=== PATIENT | female | born 1980 ===

== ENCOUNTER 2018-05-25 18:11 | Observation (INO) ==
[2018-05-25] MEDS ORDERED: ACETAMINOPHEN 650 MG/65 ML BOTTLE IV ONE (18:26)
[2018-05-25] MEDS ORDERED: HYDROmorphone 2 MG/ML VIAL IV PRN ×2 (18:26→22:31)
[2018-05-25] MEDS ORDERED: ONDANSETRON 4 MG/2 ML VIAL IV ONE (18:26)
[2018-05-25] MEDS ORDERED: 0.9 % SODIUM CHLORIDE 1,000 ML IV ONE (18:37)
[2018-05-25] MEDS ORDERED: ACETAMINOPHEN 1,000 MG/100 ML BOTTLE IV ONE (18:37)
[2018-05-25 19:00] LABS: Mean Cell Volume 85.5 fL (80.0-100.0); Mean Corpuscular HGB Conc 31.7 g/dL (31.0-36.0); Platelet Count 269 K/mcL (140-440); RBC 4.49 M/mcL (4.00-5.20)
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
[2018-05-25 19:22] LABS: ALT/SGPT 23 U/l (0-40); Albumin 4.3 gm/dL (3.2-5.2); Albumin/Globulin Ratio 1.3 (1.0-2.3); Alkaline Phosphatase 88 U/L (39-117); Blood Urea Nitrogen 10 mg/dl (6-20)
[2018-05-25 19:33] LABS: Anisocytosis 1+ (NONE SEEN); Basophils % (Manual) 1 % (0-2); Lymphocytes % 13 % (15-49); Monocytes % (Manual) 6 % (1-12); Platelet Estimate NORMAL (NORMAL); RBC Morphology ABNORMAL (NORMAL); Segmented Neutrophils % 80 % (38-78)
[2018-05-25] MEDS ORDERED: LEVOFLOXACIN 750 MG/150 ML BAG IV ONE (20:10)
[2018-05-25] MEDS ORDERED: cefTRIAXone 1 GM VIAL IV ONE (20:10)
[2018-05-25] MEDS ORDERED: ONDANSETRON 4 MG/2 ML VIAL IV PRN (20:32)
[2018-05-25 20:40] LABS: Appearance,Urine CLOUDY; Bacteria,Urine 0 /hpf (0); Bilirubin,Urine NEG (NEG); Color,Urine YELLOW; Glucose,Urine (UA) NEGATIVE (NEG); Leukocyte Esterase,Urine NEG /uL (NEG); Mucus,Urine FEW /hpf (0); Protein,Urine 100 mg/dL (NEG); Specific Gravity,Urine 1.018 (1.000-1.035); Urine Amorphous Crystals FEW /hpf (0); Urine Blood NEG mg/dL (<0.03); Urine RBC 10 /hpf (0-1); Urine Squamous Epithelial Cell 14 /hpf (0-4); Urine WBC 18 /hpf (0-4)
[2018-05-25] MEDS ORDERED: NICOTINE 14 MG PATCH TOPICAL ONE (20:58)
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
[2018-05-25] MEDS ORDERED: LORazepam 2 MG/ML VIAL IV PRN (22:31)
[2018-05-25] MEDS ORDERED: ACETAMINOPHEN 1,000 MG/100 ML BOTTLE IV PRN (22:31)
[2018-05-25] MEDS: 0.9 % SODIUM CHLORIDE 1,000 ML IV SCH (22:46)
[2018-05-25] MEDS ORDERED: diphenhydrAMINE 50 MG/ML VIAL ONE (22:54)
[2018-05-25] MEDS: diphenhydrAMINE 50 MG/ML VIAL IV SCH ×2 (23:25)
[2018-05-26] MEDS ORDERED: HYDROmorphone 2 MG/ML VIAL ONE (03:25)
[2018-05-26] MEDS: 0.9 % SODIUM CHLORIDE 1,000 ML IV SCH ×2 (03:29→11:41)
[2018-05-26 06:32] LABS: Basophils # (Auto) 0 K/mcL (0.0-0.3); Basophils % (Auto) 0.4 % (0.0-2.0); Eosinophils # (Auto) 0.1 K/mcL (0.0-0.7); Eosinophils % (Auto) 1.2 % (0.0-7.0); Lymphocytes # (Auto) 1.7 K/mcL (1.5-4.8); Lymphocytes % (Auto) 16.4 % (15.5-49.0); Mean Cell Volume 86.3 fL (80.0-100.0); Mean Corpuscular HGB Conc 32.5 g/dL (31.0-36.0); Monocytes # (Auto) 1.2 K/mcL (0.1-0.9); Platelet Count 223 K/mcL (140-440); RBC 3.77 M/mcL (4.00-5.20); Red Cell Distribution Width 16.1 % (11.5-14.5)
[2018-05-26 07:10] LABS: ALT/SGPT 16 U/l (0-40); Albumin 3.2 gm/dL (3.2-5.2); Albumin/Globulin Ratio 1.2 (1.0-2.3); Alkaline Phosphatase 111 U/L (39-117); Bilirubin,Direct < 0.2 mg/dL (0.0-0.3); Blood Urea Nitrogen 8 mg/dl (6-20); Gamma Glutamyl Transpeptidase 17 U/L (5-36); Uric Acid 3.1 mg/dL (2.5-8.0)
[2018-05-26] MEDS ORDERED: PANTOPRAZOLE 40 MG VIAL IV SCH (07:30)
--- NOTE | 2018-05-26 07:38 | Emergency Department Note ---
ED Note Addendum Note Addendum: I discussed this case with the mid-level provider and agree with the assessment and plan.
--- NOTE | 2018-05-26 07:49 | Cat Scan Report ---
CLINICAL INFORMATION: Right flank and right lower abdomen pain COMPARISON: 05/01/10 TECHNIQUE: The abdomen was imaged without oral or IV contrast, scanning from the diaphragm to the symphysis pubis. Sagittal and coronal reformats were created. The radiation exposure was limited using dose reduction technology. FINDINGS: 63 minor dependent atelectasis is present posteriorly in both lung bases. The lung bases are otherwise clear and there is no pleural effusion. No hiatus hernia is present. Evaluation the abdominal organs without contrast is somewhat limited. The liver is normal in size and homogeneous. The gallbladder is normal with no stones or thickening of the wall. The bile ducts are nondilated. The spleen is normal in size and homogeneous. No abnormality is seen in the pancreas. Patient is very thin and there is virtually no intra-abdominal fat. This limits the contrast resolution in the abdomen and pelvis. Both kidneys are relatively large and have increased in size approximately 1 cm since 05/01/10. The parenchyma is much lower than that of the adjacent liver and spleen and there are faint areas of increased attenuation in many of the papilla bilaterally. No hydronephrosis is present and there is no stranding of the perirenal fat. No discrete mass or cyst are seen in either kidney. The ureters are decompressed. The kidneys appeared normal on the prior CT done in 2010. There is a large amount stool throughout the colon. There is fluid in nondilated small intestine. The appendix is not clearly identified but there is no evidence of appendicitis or inflammatory bowel disease. No diverticula are seen. There is no evidence of a mass, abscess or ascites within the abdomen or pelvis. Urinary bladder is largely empty but grossly normal. The uterus is anteverted and normal in size. No gross abnormality is seen in either ovary. IMPRESSION: Fecal impaction Symmetric bilateral enlargement of the kidneys which have abnormal low attenuation. This could be due to acute pyelonephritis or acute glomerulonephritis. Nafisa Laisha was called with the results Interpreted and Authenticated by: Paramjit Saeed 05/26/18
--- NOTE | 2018-05-26 09:19 | Ultrasound Report ---
History: Right lower quadrant pain FINDINGS: The pelvis was imaged both transabdominally and endovaginally. The uterus is anteverted and measures 4.6 x 5.9 x 9.7 cm. In the mid fundus, contiguous with the endometrium there is a well-circumscribed hypoechoic, hypovascular solid nodule which measures 1.5 x 2.4 x 1.6 cm. The endometrium is 4 mm in thickness and there is no fluid in the endometrial canal. Right ovary is 1.7 x 4.1 x 4.1 cm. It Contain small follicles. There is also a well circumscribed 1.3 x 1.4 x 1.4 cm solid structure. Doppler shows flow along the periphery but the central component is avascular. Trace amount of free fluid is present in the cul-de-sac. Left ovary is normal and measures 2.5 x 2.5 x 3.3 cm and contains a couple small follicles. No adnexal mass is present. Incidentally noted are couple small benign-appearing lymph nodes in the right lower pelvis which have fatty central melonie and measure up to 7 x 10 mm. IMPRESSION: 1.5 x 1.6 cm submucosal fibroid in the fundus of the uterus. 1.3 x 1.4 cm nodule in the right ovary which is most likely a corpus luteum.. Trace amount of free fluid in the cul-de-sac. Interpreted and Authenticated by: Paramjit Saeed 05/26/18
[2018-05-26] MEDS: MAGNESIUM HYDROXIDE 30 ML ORAL.SUSP PO SCH ×2 (11:41→15:00)
[2018-05-26] MEDS ORDERED: METOCLOPRAMIDE 10 MG/2 ML VIAL IV SCH (12:00)
--- NOTE | 2018-05-26 14:52 | General Surgery Progress Note ---
Subjective Patient reports: feels better, pain is less, tolerating liquids well, flatus, bowel movement, afebrile Narrative: Note initiated : 05/26/18 at 2:52 pm Service Date, if different from initiated Date: [] Patient: Jimy Tomlin 38 y/o F admitted on 05/25/18 for right sided abd pain, severe. Chief Complaint: [patient states that she feels much better. Her abdominal and right flank pain has resolved. Her temperature maximum is 99.4. White blood count 10.6 and hemoglobin 10.6. Her inpatient panel is normal. Patient states that since she feels better she does not wish to stay in the hospital. She is advised that we have not made a definitive diagnosis and that she should not leave the hospital. She states that she mostly and is willing to sign out AMA. Patient is advised that if her symptoms should worsen that she should come back to the emergency room for reevaluation rather than remain at home. She states that she is going to go to [place] today and she is advised that if she is [place] severe abdominal discomfort she is to seek medical attention in that city.] Objective Temp Pulse Resp BP Pulse Ox 99.4 F H 97 H 12 130/80 99 05/26/18 11:33 05/26/18 11:33 05/26/18 11:33 05/26/18 11:33 05/26/18 11:33 - Additional Data Intake & Output - Last 24 hours: Intake & Output 05/24/18 05/25/18 05/26/18 05/27/18 05:59 05:59 05:59 05:59 Intake Total 1920 1000 Balance 1919 1000 Weight 124 lb - General physical appearance well developed, well nourished, no distress - Eyes PERRL, normal ocular movement - ENT normal pinna, normal nares, normal mucosa, no hearing loss, no congestion - Neck no masses, no bruits, trachea midline, no lymphadenopathy, no venous distension - Respiratory normal expansion, normal respiratory effort, clear to auscultation - Cardiovascular Cardiovascular exam: Present: normal rate and rhythm, RRR, +S1, +S2. Absent: JVD, tachycardia - Abdomen non tender (tenderness of right lower quadrant and right flank has resolved even with deep palpation; she has good active bowel sounds), bowel sounds (present), surgical scars (none), masses (none) - Integumentary no rash, no growths, no abnormal pigmentation - Neurologic normal coordination, normal sensation - Musculoskeletal normal gait, normal posture - Psychiatric oriented to time, oriented to person, oriented to place, speech is normal, memory intact - Labs 05/26/18 04:10 05/26/18 04:10 Diabetes panel 05/25/18 05/26/18 Range/Units 18:35 04:10 Sodium 135 139 (133-145) mmol/L Potassium 3.8 3.9 (3.3-5.1) mmol/L Chloride 95 L 105 (96-108) mmol/L Carbon Dioxide 26 25 (22-30) mmol/L BUN 10 8 (6-20) mg/dl Creatinine 0.8 0.7 (0.6-1.1) mg/dl Glucose 112 H 74 (70-105) mg/dL Calcium 9.4 8.5 L (8.6-10.4) mg/dl AST 18 11 (0-37) U/l ALT 23 16 (0-40) U/l Alkaline Phosphatase 88 111 (39-117) U/L Total Protein 7.6 5.8 L (5.9-8.4) gm/dL Albumin 4.3 3.2 (3.2-5.2) gm/dL Triglycerides 83 (<150) mg/dl Calcium panel 05/25/18 05/26/18 Range/Units 18:35 04:10 Calcium 9.4 8.5 L (8.6-10.4) mg/dl Phosphorus 3.1 (2.7-4.5) mg/dL Albumin 4.3 3.2 (3.2-5.2) gm/dL Pituitary panel 05/25/18 05/26/18 Range/Units 18:35 04:10 Sodium 135 139 (133-145) mmol/L Potassium 3.8 3.9 (3.3-5.1) mmol/L Chloride 95 L 105 (96-108) mmol/L Carbon Dioxide 26 25 (22-30) mmol/L BUN 10 8 (6-20) mg/dl Creatinine 0.8 0.7 (0.6-1.1) mg/dl Glucose 112 H 74 (70-105) mg/dL Calcium 9.4 8.5 L (8.6-10.4) mg/dl Adrenal panel 05/25/18 05/26/18 Range/Units 18:35 04:10 Sodium 135 139 (133-145) mmol/L Potassium 3.8 3.9 (3.3-5.1) mmol/L Chloride 95 L 105 (96-108) mmol/L Carbon Dioxide 26 25 (22-30) mmol/L BUN 10 8 (6-20) mg/dl Creatinine 0.8 0.7 (0.6-1.1) mg/dl Glucose 112 H 74 (70-105) mg/dL Calcium 9.4 8.5 L (8.6-10.4) mg/dl Total Bilirubin 0.2 < 0.2 (0.0-1.0) mg/dL AST 18 11 (0-37) U/l ALT 23 16 (0-40) U/l Alkaline Phosphatase 88 111 (39-117) U/L Total Protein 7.6 5.8 L (5.9-8.4) gm/dL Albumin 4.3 3.2 (3.2-5.2) gm/dL Assessment and Plan (1) Right lower quadrant abdominal pain Status: Acute Assessment and plan: Patient is clinically improved. She wishes to leave the hospital AGAINST MEDICAL ADVICE. She is advised that if her symptoms should worsen she is to return to this facility or go to the nearest facility for reevaluation. No other discharge instructions were given. No prescriptions were given since I do not have a diagnosis. Current Visit: Yes - Time Spent With Patient Total time spent is greater than 50% in coordination of care (as documented) at patient's floor/unit and/or counseling patient:
== END 2018-05-26 15:00 | disposition left against medical advice (07) ==
LOC: ED 18:11 → MEDSUR 18:11
PROVIDERS: ADMIT Family Medicine Adult Medicine; ATTEND Family Medicine Adult Medicine